=== PATIENT | female | born 1985 | race African-American/Black ===

== ENCOUNTER 2019-08-16 14:28 | Emergency (ER) | payer OTHER ==
[2019-08-16] MEDS ORDERED: ACETAMINOPHEN 500 MG TABLET (FP) PO ONE (14:37)
--- NOTE | 2019-08-16 14:41 | PDOC ---
Rapid Medical Evaluation Chief Complaint: Cold Symptoms Time Seen by Provider: 08/16/19 14:34 Medical Evaluation: Allergies Allergy/AdvReac Type Severity Reaction Status Date / Time No Known Allergies Allergy Verified 08/16/19 14:33 Vital Signs Temp Pulse Resp BP Pulse Ox 99.6 F 129 H 20 148/67 100 08/16/19 14:33 08/16/19 14:33 08/16/19 14:33 08/16/19 14:33 08/16/19 14:08/16/19 14:37 HPI: The patient is a 34 y/o female [employer] 8 months with no past medical history, who presents for nasal congestion, cough, body aches and chills for 10 days. The patient has + exposure [facility] - Recent travel. They are concerned they have coronavirus and present for testing. - difficulty breathing, shortness of breath, chest pain, lightheadedness, dizziness nausea, vomiting, and diarrhea. Other 12 point ROS reviewed and negative. EXAM: General: NAD, well-appearing, AAO x3. tachy ENT: + rhinorrhea and nasal congestion. Neck: FROM, no midline tenderness Lungs: Clear to auscultation bilateral without wheezes rales or rhonchi. Normal excursion. Patient is able to speak in full sentences. Heart: Tachycardia , S1-S2 present, no murmurs rubs or gallops. Abdomen: Non-distended MSK/Extremities: no decreased ROM, no obvious deformities. No cyanosis Neuro: Normal gait, cranial nerves II through XII grossly intact. SKIN: No rashes, bruising. Color normal appering A/P: Cough Patient has no past medical history, denies recent travel and known COVID exposure. Patient does meet criteria for testing at this time. Tylenol , cxr, po fluid
[2019-08-16 14:43] VITALS: BP 148/67; TEMP 99.6
--- NOTE | 2019-08-16 15:24 | PDOC ---
*Physical Exam - Vital Signs Last Vital Signs Temp Pulse Resp BP Pulse Ox 99.6 F 129 H 20 148/67 100 08/16/19 14:33 08/16/19 14:33 08/16/19 14:33 08/16/19 14:33 08/16/19 14:33 ED Treatment Course - Medications Given in the ED: ED Medications Discontinued Medications Generic Name Dose Route Start Last Admin Trade Name Freq PRN Reason Stop Dose Admin Acetaminophen 1,000 mg 08/16/19 14:37 08/16/19 14:45 Tylenol - PO 08/16/19 14:38 1,000 mg ONCE ONE Administration Medical Decision Making - Medical Decision Making 08/16/19 15:37 A/P: 34yo who is 36wks gestation with fever and known Covid Exposure CXR- No active pulmonary disease. 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 Covid testing pending. D/C when HR improves. 08/16/19 15:52 Repeat HR-108. as HR improved with PO fluids and Tylenol. I feel it is safe to discharge. Discharge home to f/u with OB as needed. 08/16/19 15:57 Discharge - Discharge Information Problems reviewed: Yes Clinical Impression/Diagnosis: Cough Condition: Fair Disposition: HOME - Admission No - Follow up/Referral Referrals: JOE MEZA [Primary Care Provider] - - Patient Discharge Instructions Patient Printed Discharge Instructions: [facility]-Coronavirus Instructions Additional Instructions: Drink 2-3 L of water daily Take Tylenol 650 mg every 4 hours for fever and pain Return to the nearest ER if short of breath, unable to swallow or feeling sicker Followup with your doctor in one to 2 days Covid-19 Symptoms and Knowing When to Stay Home and Return to Work The following is the most recent guidance from our Infection Prevention and Control team on the symptoms and duration of Covid-19, along with when to stay home from work, when you may return, and what procedures to follow when you are ready to come back. Go to www.[facility] for uptodate information regarding Covid-19. There is also the [facility] order to quarantine in case of positive testing. Please call [facility] : [facility] CORONAVIRUS HOTLINE: What are the most common symptoms of Covid-19? - Muscle aches - Loss of energy and appetite - Persistent cough - Low grade fever lasting 24 hours or more, causing the person to feel feverish with chills If I have Covid-19, how long can I expect to feel sick? - Typically one week. - The majority of individuals feel better in 5 to 7 days with rest and [id number] cold and flu medications. How does illness progress in cases of Covid-19? - A few individuals progress to pneumonia (infection of the lungs) and/or pneumonitis (inflammation of the lungs). - Pneumonia/pneumonitis causes shortness of breath, worsening cough and in most cases, fever. - Individuals with the symptoms of Covid-19 who develop a worsening cough and shortness of breath must seek care quickly. If Im concerned about my symptoms or feel unwell, when must I stay home from work/ school? If you have muscle aches, cough, fatigue and low-grade fever, do not go to work/ school - Post Discharge Activity
[2019-08-16 15:34] VITALS: PULSE 115
== END 2019-08-16 16:01 | disposition home or self-care (01) ==
LOC: JER 14:28
DX: R05 Cough (principal)
CPT/HCPCS: 71045-TC-FY; 99283-25; U0002